=== PATIENT | female | born 1945 | race Caucasian/White ===

== ENCOUNTER → 2017-05-18 | Outpatient (CLI) | payer MEDICARE, OTHER ==
--- NOTE | 2017-05-19 00:41 | RAD ---
Procedure: XR CHEST 2 VIEWS Exam Date: 05/18/2017 Ordering Provider: FER CLAIRE Clinical Indication: PRE OP Comparison: 05/28/2015 Findings: Cardiomediastinal silhouette: Unremarkable Pulmonary vasculature : Unremarkable Aortic contour: Unremarkable Focal lung consolidation: None Pleural effusion: None Pneumothorax: None Bones and soft tissues: Nonacute Impression: 1. No acute abnormalities in the chest. Electronically signed by: Slava Conner MD 05/19/2017 12:40 AM [employer]
--- NOTE | 2017-05-21 08:21 | RAD ---
EXAM DESCRIPTION: Hip,Right 2 Views CLINICAL HISTORY: HIP PN . Hip pain COMPARISON: July 29, 2015. FINDINGS: 2 views of the right hip show severe narrowing of the joint space. Moderate osteophytic ridging of the acetabulum and circumferential femoral head are noted with areas of sclerosis and subcortical cystic changes of the femoral head and acetabulum that appear worsened compared to previous exam. No acute fracture or dislocation is seen. Left hip arthroplasty changes are partly visualized. IMPRESSION: Severe advanced osteoarthritic changes of the right hip are seen that appear worsened from previous exam. Electronically signed by: Raj Coates MD 05/21/2017 8:19 AM [facility]
--- NOTE | 2017-05-21 08:31 | RAD ---
EXAM DESCRIPTION: Pelvis CLINICAL HISTORY: HIP PN hip pain COMPARISON: July 29, 2015 IMPRESSION: Single AP the supine view of the pelvis shows progressive worsening of the severe advanced osteoarthritic changes in the right hip with bone on bone appearance to the joint space. There are now sclerotic and subcortical cystic changes to the weightbearing portion of the femoral head and adjacent acetabulum. No obvious fracture or dislocation is seen. Left total hip arthroplasty is identified without complicating features. The distal aspect of the femoral component is not included in the [id number]. Degenerative changes of the sacroiliac joints and pubic symphysis are again seen. Electronically signed by: Raj Coates MD 05/21/2017 8:30 AM [facility]
== END | disposition home or self-care (01) ==
LOC: RAD 08:54
PROVIDERS: ATTEND Orthopaedic Surgery
DX: M25.551 Pain in right hip (principal); Z01.818 Encounter for other preprocedural examination

== ENCOUNTER 2017-06-20 05:45 | Outpatient (CLI) | payer MEDICARE, OTHER, MEDICAID ==
--- NOTE | 2017-06-19 11:11 | HP ---
CHIEF COMPLAINT: Right hip pain. HISTORY OF PRESENT ILLNESS: Ms. Watkins is a 62-year-old female with a history of severe pain in the right hip. She has had contralateral pain and had a total hip arthroplasty. Because of her pain and failure or conservative measures, she has requested operative intervention. After discussing the risks , benefits and alternatives to that, the patient has given informed consent. PAST SURGICAL HISTORY: 1. Appendectomy. 2. Cholecystectomy. 3. Hysterectomy. 4. Hip replacement. MEDICATIONS: 1. Prozac. 2. Lisinopril. ALLERGIES: NO KNOWN DRUG ALLERGIES. CODE STATUS: Full code. IMMUNIZATIONS: Up to date. SOCIAL HISTORY: The patient does not drink, smoke or use any illicit drugs. FAMILY HISTORY: None pertinent to today's complaint. REVIEW OF SYSTEMS: Negative except as indicated in the History of Present Illness. PHYSICAL EXAMINATION: VITAL SIGNS: Blood pressure 150/90. Pulse 77. Height 5'2". Weight 171. MENTAL STATUS: The patient is awake, alert, and is able to give a good history and participate in the physical. The patient is oriented to person, place and time. SKIN: Normal tone and turgor. HEENT: Normocephalic, atraumatic. Pupils equal, round and reactive. Mucosal membranes are moist. NECK: Normal range of motion. No thyromegaly, no lymphadenopathy. CHEST: Normal respiratory excursion. CARDIAC: Regular rate and rhythm. No murmurs, rubs or gallops. MUSCULOSKELETAL: The bilateral upper extremities show full active range of motion without deformity, crepitus or pain. Sensation is intact. They are warm and well perfused. The left lower extremity shows good flexion and extension with abduction to about 30 degrees. She has no pain with range of motion of the hip or knee. Sensation is intact. It is warm and well perfused. The right hip shows severe pain with range of motion. Sensation is intact in the extremity and it is warm and well perfused. She has severe pain with internal rotation and has obligate external rotation. IMAGING: X-rays show severe end-stage osteoarthritis. ASSESSMENT: 1. Osteoarthritis. PLAN: The plan at this point is for total hip arthroplasty. We have discussed the risks, benefits, and alternatives to that and the patient has given informed consent. #[id number] [facility]
[2017-06-20] MEDS ORDERED: LACTATED RINGERS 1,000 ML ONE (06:14)
[2017-06-20] MEDS ORDERED: ceFAZolin SODIUM 1 GM VIAL ONE ×2 (06:14→06:35)
[2017-06-20] MEDS ORDERED: VANCOMYCIN HCL INJ 1,000 MG VIAL IVPB ONE ×2 (06:14→06:35)
[2017-06-20] MEDS ORDERED: SODIUM CHLORIDE 0.9% 250ML 250 ML ONE (06:14)
[2017-06-20] MEDS ORDERED: SODIUM CHL 0.9% 100ML MINI-BAG 100 ML IVPB ONE (06:14)
[2017-06-20] MEDS ORDERED: TRANEXAMIC ACID 1,000 MG/10 ML VIAL ONE ×2 (06:24)
[2017-06-20] MEDS ORDERED: SODIUM CHLORIDE 0.9% 100ML 100 ML IVPB ONE (06:24)
[2017-06-20] MEDS ORDERED: ROCURONIUM BROMIDE 10 MG/ML VIAL ONE (06:41)
[2017-06-20] MEDS ORDERED: fentaNYL CITRATE INJ 50 MCG/ML AMP ONE (06:41)
[2017-06-20] MEDS ORDERED: MORPHINE SULFATE *EPIDURAL* 0.5 MG/ML VIAL ONE (06:41)
[2017-06-20] MEDS ORDERED: MIDAZOLAM INJ 2 MG/2 ML VIAL ONE (06:42)
[2017-06-20] MEDS ORDERED: KETAMINE HCL 100 MG/ML VIAL ONE (06:42)
[2017-06-20 08:13] VITALS: BP 107/70; TEMP 99.4; O2SAT 98
== END 2017-06-20 09:10 | disposition home or self-care (01) ==
LOC: AMB 05:45 → EDSTATUS 07:00 → AMB 09:10
PROVIDERS: ATTEND Orthopaedic Surgery
DX: M16.11 Unilateral primary osteoarthritis, right hip (principal); Z01.818 Encounter for other preprocedural examination
CPT/HCPCS: 36415; 80048; 81001; 85025; 86850; 86900; 86901; 86922; 87070; 87086; J0690; J2250; J3370; J7050; J7120

== ENCOUNTER → 2018-11-04 | Outpatient (CLI) | payer MEDICARE, OTHER, MEDICAID | LOC: LAB.O 14:45 | PROVIDERS: ATTEND Orthopaedic Surgery | DX: Z01.818 Encounter for other preprocedural examination (principal) ==

== ENCOUNTER → 2019-05-06 | Outpatient (CLI) | payer MEDICARE, OTHER, MEDICAID ==
--- NOTE | 2019-05-06 11:22 | CT ---
Study: CT of the Right Hip. Indication: LOCALIZED PRIMARY OSTEOARTHRITIS OF THE PELVIC REGION AND THIGH Technique: Axial CT images were acquired through the right hip without intravenous contrast. Coronal and sagittal reformats performed. This exam was performed according to our departmental dose-optimization program, which includes automated exposure control, adjustment of the mA and/or kV according to patient size and/or use of iterative reconstruction technique. Comparison: None. Findings: Advanced-severe right hip osteoarthritis. Complete joint space loss. Pronounced cortical remodeling. Extensive subchondral sclerosis and cystic change. Large joint line osteophytes. Moderate size joint effusion. 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 Scattered vascular calcifications. Impression: Preoperative surgical planning CT demonstrating advanced-severe right hip osteoarthritis. Electronically signed by: Arnold Rice MD 05/06/2019 11:20 AM [facility]
== END ==
LOC: CT 10:00
PROVIDERS: ATTEND Orthopaedic Surgery
DX: M16.11 Unilateral primary osteoarthritis, right hip (principal)

== ENCOUNTER → 2019-05-27 | Outpatient (CLI) | payer MEDICARE, MEDICAID ==
--- NOTE | 2019-05-28 11:29 | RAD ---
EXAM DESCRIPTION: Chest,2 Views CLINICAL HISTORY: PRE-SURGERY EVALUATION COMPARISON: May 18, 2017 FINDINGS: Two-view chest x-ray shows mild enlargement of the cardiac silhouette without pulmonary vascular congestion.. The lungs are normally aerated and clear. Costophrenic angles are sharp. Mild disc degenerative changes of the thoracic spine are seen. Severe secondary degenerative changes of the bilateral shoulders are again seen. IMPRESSION: No radiographic evidence of acute cardiopulmonary disease. Electronically signed by: Raj Coates MD 05/28/2019 11:28 AM [facility]
== END ==
LOC: LAB.O 12:37
PROVIDERS: ATTEND Family Medicine
DX: Z01.818 Encounter for other preprocedural examination (principal)